=== PATIENT | male | born 1980 | race African-American/Black ===

== ENCOUNTER 2019-07-27 16:23 | Emergency (ER) | payer SELFPAY ==
[2019-07-27] MEDS ORDERED: HYDROmorphone 1 MG/ML Syringe IVPUSH ONE (16:42)
[2019-07-27] MEDS ORDERED: diphenhydrAMINE 50 MG/ML SDV IVPUSH ONE (16:42)
[2019-07-27] MEDS ORDERED: Labetalol 100 MG/20 ML MDV IVPUSH ONE ×3 (16:43→18:35)
[2019-07-27] MEDS ORDERED: Metoclopramide 10 MG/2 ML SDV IVPUSH ONE (16:43)
[2019-07-27] MEDS ORDERED: Sodium Chloride 0.9% 1,000 ML IV SCH (16:45)
--- NOTE | 2019-07-27 16:51 | EDM.PDOC ---
ED HPI GENERAL MEDICAL PROBLEM - General Chief Complaint: Headache Stated Complaint: HEAD ACH Time Seen by Provider: 07/27/19 16:45 Source of Information: Reports: Patient History Limitations: Reports: No Limitations - History of Present Illness INITIAL COMMENTS - FREE TEXT/NARRATIVE: 38-year-old male of -[place] descent presents to the ED with a severe generalized headache primarily frontal parietal lobes for the last 5 days. States the headache is been constant throbbing pounding and associated with photophobia and nausea without vomiting. He states he rarely gets a headache. Denies any falls or recent closed head injuries. He was found to have a markedly elevated blood pressure upon arrival in the ED greater than 220/125. He does not see a doctor and therefore has no idea if he has a primary hypertension issue. He states his mother has hypertension. Has any chest pain. As far as he knows he is never had any renal problems. Onset: Gradual Onset Date: 07/23/19 Duration: Day(s):, Constant Location: Reports: Head (Severe generalized headache) Quality: Reports: Ache, Throbbing, Other Severity: Severe (Headache 9 out of 10) Improves with: Reports: Rest (It is worse when he is standing up or trying to walk. Better when he is lying down. This suggests a mild traction component to the headache) Worsens with: Reports: Other (Standing) Context: Denies: Activity ( and looking at light.), Exercise, Lifting, Sick Contact, Trauma, Other Associated Symptoms: Reports: Headaches, Loss of Appetite, Malaise. Denies: Confusion, Chest Pain, Cough, cough w sputum, Diaphoresis, Fever/Chills, Nausea/Vomiting, Rash, Seizure, Shortness of Breath, Syncope, Weakness Treatments BAKESHOP CLE[employer]ER: Reports: Other (see below) (None.) Headache Pain Score (Numeric/FACES): 6 - Related Data Allergies Allergy/AdvReac Type Severity Reaction Status Date / Time pork derived (porcine) Allergy Cannot Verified 07/27/19 16:36 Remember Home Meds: Home Meds . [No Known Home Meds] 07/27/19 [History] Past Medical History - Past Health History Medical/Surgical History: Denies Medical/Surgical History Social & Family History - Tobacco Use Smoking Status *Q: Never Smoker Second Hand Smoke Exposure: No - Caffeine Use Caffeine Use: Reports: None - Recreational Drug Use Recreational Drug Use: Yes Recreational Drug Type: Reports: Marijuana/Hashish - Living Situation & Occupation Occupation: Unemployed Social History Comment: Relocated to [place] and has not yet employed. ED ROS GENERAL - Review of Systems Review Of Systems: See Below Constitutional: Reports: Malaise, Fatigue, Decreased Appetite. Denies: Fever, Chills HEENT: Reports: Other (It is sensitive to light.) Respiratory: Reports: No Symptoms Cardiovascular: Reports: No Symptoms, Blood Pressure Problem (Pressure is markedly elevated but he does not see a doctor and does not know if he has hypertension.) Endocrine: Reports: Fatigue GI/Abdominal: Reports: Nausea. Denies: Vomiting : Reports: No Symptoms Musculoskeletal: Denies: Neck Pain Skin: Reports: No Symptoms Neurological: Reports: Headache. Denies: Confusion, Dizziness Psychiatric: Reports: No Symptoms Hematologic/Lymphatic: Reports: No Symptoms Immunologic: Reports: No Symptoms ED EXAM, HEAD INJURY - Physical Exam Exam: See Below Exam Limited By: Language Barrier (Is a very mild language barrier. He seems to speak very good Tanzanian and have a good understanding of Tanzanian language.) General Appearance: Alert, WD/WN, Moderate Distress, Other (Temperature is 36.4 which is likely inaccurate. Pulse is 60 and sinus respiratory 16 with sats of 99%. BP is 221/123. Checked on multiple occasions and similar recordings have been obtained x3.) Head: Atraumatic, Normocephalic. No: Scalp Lacerations, Scalp Swelling Nexus Criteria: No: Posterior, Midline Cervical Tenderness, Evidence of Intoxication, Altered Level of Consciousness, Focal Neurological Deficit, Painful Distraction Injuries Eyes: Bilateral Eye: A-V [place] (mild to moderate. No flame hemorrhages identified), Normal Inspection, PERRL Throat/Mouth: Normal Inspection, Normal Lips, Normal Oropharynx, Other (Is mildly dry and coated.) Neck: Non-Tender, Full Range of Motion, Normal Alignment, Normal Inspection. No: Stiff Neck Respiratory: No Respiratory Distress, Lungs Clear, Normal Breath Sounds, No Accessory Muscle Use, Chest Non-Tender Cardiovascular: Normal Peripheral Pulses, Regular Rate, Rhythm, No Edema, No Gallop, No Murmur, No Rub GI/Abdominal Exam: Normal Bowel Sounds, Soft, Non-Tender, No Organomegaly, No Abnormal Bruit, No Mass, Pelvis Stable, Other (No previous abdominal surgery.) Back Exam: Normal Inspection, Full Range of Motion. No: CVA Tenderness (L), CVA Tenderness (R) Extremities: Normal Inspection, Normal Range of Motion, Non-Tender, No Pedal Edema Neurologic: No Motor/Sensory Deficits, Alert, Normal Mood/Affect, Oriented x 3, Other (No ataxia on [id number] assessment. No pronator drift.) DTR: 1+: Achilles (R), Achilles (L), 2+: Bicep (R), Bicep (L), Patella (R), Patella (L) Skin: Normal Color, Warm/Dry - Franck Coma Score Best Eye Response (Franck): (4) Open Spontaneously Best Verbal Response ([place]): (5) Oriented Best Motor Response ([place]): (6) Obeys Commands Franck Total: 15 EKG INTERPRETATION EKG Date: 07/27/19 Time: 17:29 Rhythm: Other Rate (Beats/Min): 51 [place]: LAD-Left [place] Deviation (Minimal left axis deviation of -5 degrees) P-Wave: Enlarged (Sitter left atrial hypertrophy) QRS: Other (Ventricular hypertrophy with strain pattern or repull polarization abnormality.) ST-T: Other (Mild ST segment elevation V1 to V3 with T wave inversion V4 to V6 1 and aVL) QT: Normal EKG Interpretation Comments: Abnormal ECG Course - Vital Signs Last Recorded V/S: Last Vital Signs Temp 36.4 C 07/27/19 16:31 Pulse 62 07/27/19 16:43 Resp 16 07/27/19 16:43 BP 182/127 H 07/27/19 18:49 Pulse Ox 98 07/27/19 16:43 - Orders/Labs/Meds Orders: Active Orders 24 hr Category Date Time Status EKG Documentation Completion [RC] STAT Care 07/27/19 16:44 Active Chest 1V Frontal [CR] Stat Exams 07/27/19 16:44 Taken URINALYSIS W/MICROSCOPIC [UA W/MICROSCOPIC] [URIN] Stat Lab 07/27/19 17:28 Ordered Labetalol [Normodyne] 100 mg Med 07/27/19 17:45 Active Sodium Chloride 0.9% [Normal Saline] 80 ml IV TITRATE Potassium Chloride [KCl 10 MEQ in Water 100 ML] 10 meq Med 07/27/19 18:15 Active Premix Bag 1 bag IV Q1H Sodium Chloride 0.9% [Normal Saline] 1,000 ml Med 07/27/19 16:45 Active IV ASDIRECTED niCARdipine 25 MG in Normal Saline @ 5 MG/HR(250ml) Med 07/27/19 19:00 Ordered niCARdipine HCl [Nicardipine HCl] 25 mg Sodium Chloride 0.9% [Normal Saline] 250 ml IV TITRATE Medication Orders Sodium Chloride (Normal Saline) 1,000 mls @ 100 mls/hr IV ASDIRECTED JOSE ANTONIO Last Admin: 07/27/19 17:03 Dose: 100 mls/hr Documented by: JH Labetalol HCl 100 mg/ Sodium (Chloride) 100 mls @ 60 mls/hr IV TITRATE JOSE ANTONIO; Protocol Last Titration: 07/27/19 18:35 Dose: 1 mg/min, 60 mls/hr Documented by: Admin: 07/27/19 17:55 Dose: 0.5 mg/min, 30 mls/hr Documented by: JH Potassium Chloride 10 meq/ (Premix) 100 mls @ 100 mls/hr IV Q1H JOSE ANTONIO Stop: 07/28/19 00:14 Last Admin: 07/27/19 18:25 Dose: 100 mls/hr Documented by: JH Labs: Laboratory Tests 07/27/19 07/27/19 Range/Units 16:35 16:35 WBC 12.37 H (4.23-9.07) K/mm3 RBC 6.01 (4.63-6.08) M/mm3 Hgb 15.7 (13.7-17.5) gm/dl Hct 47.1 (40.1-51.0) % MCV 78.4 L (79.0-92.2) fl MCH 26.1 (25.7-32.2) pg MCHC 33.3 (32.2-35.5) g/dl RDW Std Deviation 43.9 (35.1-43.9) fL Plt Count 343 H (163-337) K/mm3 MPV 9.3 L (9.4-12.3) fl Neut % (Auto) 78.1 H (34.0-67.9) % Lymph % (Auto) 14.5 L (21.8-53.1) % [place] % (Auto) 6.9 (5.3-12.2) % Eos % (Auto) 0.1 L (0.8-7.0) Baso % (Auto) 0.2 (0.1-1.2) % Neut # (Auto) 9.66 H (1.78-5.38) K/mm3 Lymph # (Auto) 1.79 (1.32-3.57) K/mm3 [place] # (Auto) 0.85 H (0.30-0.82) K/mm3 Eos # (Auto) 0.01 L (0.04-0.54) K/mm3 Baso # (Auto) 0.03 (0.01-0.08) K/mm3 Manual Slide Review Not Reportable Sodium 141 (136-145) mEq/L Potassium 2.6 L (3.5-5.1) mEq/L Chloride 101 (98-107) mEq/L Carbon Dioxide 29 (21-32) mEq/L Anion Gap 13.6 (5-15) BUN 14 (7-18) mg/dL Creatinine 1.3 (0.7-1.3) mg/dL Est Cr Clr Drug Dosing 77.80 mL/min Estimated GFR (MDRD) > 60 (>60) mL/min BUN/Creatinine Ratio 10.8 L (14-18) Glucose 162 H (74-106) mg/dL Calcium 9.1 (8.5-10.1) mg/dL Magnesium 2.1 (1.8-2.4) mg/dl Total Bilirubin 1.2 H (0.2-1.0) mg/dL AST 21 (15-37) U/L ALT 43 (16-63) U/L Alkaline Phosphatase 132 H (46-116) U/L Total Protein 8.7 H (6.4-8.2) g/dl Albumin 4.2 (3.4-5.0) g/dl Globulin 4.5 gm/dL Albumin/Globulin Ratio 0.9 L (1-2) TSH 3rd Generation 0.421 (0.358-3.74) uIU/mL Meds: Medications Generic Name Dose Route Start Last Admin Trade Name Freq PRN Reason Stop Dose Admin Sodium Chloride 1,000 mls @ 100 mls/hr 07/27/19 16:45 07/27/19 17:03 Normal Saline IV 100 mls/hr ASDIRECTED JOSE ANTONIO Administration Labetalol HCl 100 mg/ Sodium 100 mls @ 60 mls/hr 07/27/19 17:45 07/27/19 18:3 5 Chloride IV 1 mg/min TITRATE JOSE ANTONIO 60 mls/hr Titration Protocol 1 MG/MIN Potassium Chloride 10 meq/ 100 mls @ 100 mls/hr 07/27/19 18:15 07/27/19 18:25 Premix IV 07/28/19 00:14 100 mls/hr Q1H JOSE ANTONIO Administration Discontinued Medications Generic Name Dose Route Start Last Admin Trade Name Tristenq PRN Reason Stop Dose Admin Diphenhydramine HCl 25 mg 07/27/19 16:42 07/27/19 16:57 Benadryl IVPUSH 07/27/19 16:43 25 mg ONETIME ONE Administration Enalaprilat 1.25 mg 07/27/19 18:40 07/27/19 18:49 Vasotec Iv IVPUSH 07/27/19 18:41 1.25 mg ONETIME ONE Administration Hydromorphone HCl 1 mg 07/27/19 16:42 07/27/19 16:51 Dilaudid IVPUSH 07/27/19 16:43 1 mg ONETIME ONE Administration Labetalol HCl 20 mg 07/27/19 16:43 07/27/19 17:05 Normodyne IVPUSH 07/27/19 16:44 20 mg ONETIME ONE Administration Protocol Labetalol HCl 20 mg 07/27/19 17:32 07/27/19 17:35 Normodyne IVPUSH 07/27/19 17:33 4 ml ONETIME ONE Administration Protocol Labetalol HCl 40 mg 07/27/19 18:35 07/27/19 18:38 Normodyne IVPUSH 07/27/19 18:36 40 mg ONETIME ONE Administration Protocol Metoclopramide HCl 10 mg 07/27/19 16:43 07/27/19 16:55 Reglan IVPUSH 07/27/19 16:44 10 mg ONETIME ONE Administration - Radiology Interpretation Free Text/Narrative:: 38-year-old male presents to the ED with a diffuse headache primarily felt in the frontal and parietal part of his head. Described as a vice-like headache pounding and throbbing continuously for the last 5 days. He is lost his appetite mildly nauseated but has not vomited. He has no ataxia or loss of visual acuity change or loss of balance. He was identified to be severely hypertensive on initial evaluation at 185/123. It was rechecked on multiple occasions and similar findings were obtained. The lowest it came down to is 204/126. Suspect of course that he has a primary hypertension issue and likely the major contributing factor to his headache. Plan he will have a CT head performed. He will have ECG and routine labs and urinalysis performed. He will be given labetalol 20 mg IV for hypertension. He will be given 1 mg IV for headache relief with Reglan 10 mg IV and Benadryl 25 mg IV. - Re-Assessments/Exams Free Text/Narrative Re-Assessment/Exam: 07/27/19 17:31 Blood pressure is currently 172/121. I am therefore going to give him another dose of labetalol 20 mg IV and start him on a drip at 1 mg/h. CT reveals an intracranial hemorrhage with blood in the right basal ganglia which extends into both of the lateral ventricles, third ventricle as well as the fourth ventricle. Basal ganglia hemorrhage measures 2.1 x 0.9 cm. No other areas of hemorrhage are seen. Temporal horns of the lateral ventricle are slightly dilated suggesting a mild amount of obstructing hydrocephalus presumabl y from the blood within the third and fourth ventricles. This appears to be a hypertensive bleed. There is no midline shift. 07/27/19 17:35 White count is mildly elevated at 12.37. The auto differential shows 78.1% neutrophils. Hemoglobin is 15.7 with hematocrit of 4047.1 adjusting mild hemoconcentration. Platelet count 343,000. Sodium 141 potassium very low at 2.6. Chloride 101 bicarb 29. Anion gap is 13.6 with a BUN of 14. Creatinine is 1.3 with GFR greater than 60. Glucose 162. Calcium 9.1. Magnesium 2.1. Bilirubin is mildly elevated at 1.2. AST is 21 ALT is 43 alk phos stays minimally elevated at 132. Total protein is 8.7 with an albumin fraction of 4.2 again suggesting mild hemoconcentration. TSH is 0.421 normal. Order 10 mEq of potassium intravenously q. hourly x6 doses since his potassium is so low because he is not been able to eat. Quire transport to neurosurgical capabilities as he may well need a shunt. Already enters the third and fourth ventricles and lateral ventricles do appear to be mildly dilated at this time. 07/27/19 18:39 OP on recheck is 203/131. Heart rate is 62 therefore receive labetalol dosage 40 mg IV and the drip will be increased from 0.5 to 1mg/min. Also going to give him Vasotec 1.25 mg IV for blood pressure control as well. His renal function is normal. 07/27/19 19:08 remains 174/121. His heart rate is down to 56 and therefore he will not tolerate any further doses of labetalol. Decision made to switch medications. Labetalol drip will be discontinued and he will be started on nicardipine drip starting at 5 mg/h. This will be titrated up by 2.5 mg every 15 minutes to achieve a blood pressure of 1 60-1 70 systolic and 90-100 diastolic. Maximum dose of nicardipine is 15mg/hour. Patient will be transferred to [facility] to the emergency department where Dr. Guadarrama has accepted care. The decision will be made at that time depending on his blood pressure whether he will need intensive care admission. The time of discharge patient was not showing any signs of a neurological deficit. Departure - Departure Time of Disposition: 19:10 Disposition: Home, Self-Care 01 Condition: Fair Clinical Impression: Malignant hypertension, Intracranial hemorrhage, Hypokalemia due to inadequate potassium intake, Severe headache - Discharge Information *PRESCRIPTION DRUG MONITORING PROGRAM REVIEWED*: Not Applicable *COPY OF PRESCRIPTION DRUG MONITORING REPORT IN PATIENT SALO: Not Applicable Instructions: Hypokalemia Referrals: PCP,None [Primary Care Provider] - Forms: ED Department Discharge Additional Instructions: Patient transferred to [facility] to the emergency department. Dr. Guadarrama ER physician has accepted care. Patient sent to that facility due to intracranial hemorrhage secondary to hypertensive bleed and malignant hypertension. Sepsis Event Note (ED) - Evaluation Sepsis Screening Result: No Definite Risk - Focused Exam Vital Signs: Vital Signs Temp Pulse Resp BP BP Pulse Ox 07/27/19 18:49 182/127 H 07/27/19 16:43 62 16 218/140 H 98 07/27/19 16:31 36.4 C 60 16 221/123 H 99 - My Orders Last 24 Hours: My Active Orders 07/27/19 16:44 EKG Documentation Completion [RC] STAT Chest 1V Frontal [CR] Stat 07/27/19 16:45 Sodium Chloride 0.9% [Normal Saline] 1,000 ml IV ASDIRECTED 07/27/19 17:28 URINALYSIS W/MICROSCOPIC [UA W/MICROSCOPIC] [URIN] Stat 07/27/19 17:45 Labetalol [Normodyne] 100 mg Sodium Chloride 0.9% [Normal Saline] 80 ml IV TITRATE 07/27/19 18:15 Potassium Chloride [KCl 10 MEQ in Water 100 ML] 10 meq Premix Bag 1 bag IV Q1H 07/27/19 19:00 niCARdipine 25 MG in Normal Saline @ 5 MG/HR(250ml) niCARdipine HCl [Nicardipine HCl] 25 mg Sodium Chloride 0.9% [Normal Saline] 250 ml IV TITRATE - Assessment/Plan Last 24 Hours: My Active Orders 07/27/19 16:44 EKG Documentation Completion [RC] STAT Chest 1V Frontal [CR] Stat 07/27/19 16:45 Sodium Chloride 0.9% [Normal Saline] 1,000 ml IV ASDIRECTED 07/27/19 17:28 URINALYSIS W/MICROSCOPIC [UA W/MICROSCOPIC] [URIN] Stat 07/27/19 17:45 Labetalol [Normodyne] 100 mg Sodium Chloride 0.9% [Normal Saline] 80 ml IV TITRATE 07/27/19 18:15 Potassium Chloride [KCl 10 MEQ in Water 100 ML] 10 meq Premix Bag 1 bag IV Q1H 07/27/19 19:00 niCARdipine 25 MG in Normal Saline @ 5 MG/HR(250ml) niCARdipine HCl [Nicardipine HCl] 25 mg Sodium Chloride 0.9% [Normal Saline] 250 ml IV TITRATE
[2019-07-27] MEDS ORDERED: Labetalol 100 MG in Sodium Chloride 0.9% 80 ML IV SCH (17:45)
--- NOTE | 2019-07-27 17:50 | CT ---
Head CT Technique: Multiple axial sections through the brain were obtained. Intravenous contrast was not utilized. Findings: Right-sided basal ganglia hemorrhage is noted which shows rupturing of blood into the ventricular system with blood being seen within both lateral ventricles, third ventricle as well as fourth ventricle. Basal ganglia hemorrhage measures about 2.1 x 0.9 cm. No midline shift is seen at this time. No other areas of hemorrhage are seen. Temporal horns of the lateral ventricle are slightly dilated suggesting a mild amount of obstructing hydrocephalus presumably from the blood within the third and fourth ventricles. Bone window settings were reviewed. No acute calvarial abnormality is seen. Visualized portions of the mastoid and paranasal sinuses show nothing acute. Impression: 1. Basal ganglia hemorrhage as described above. This is most likely a hypertensive bleed given its location. 2. The basal ganglia blood ruptures into the lateral ventricles. Blood is seen within both lateral ventricles, third ventricle and fourth ventricle. 3. Slightly dilated temporal horns of the lateral ventricle raising the possibility of mild obstructing hydrocephalus from the blood within the third and fourth ventricles. 4. No additional abnormality is appreciated. Diagnostic code #5 Study was dictated in MDT
[2019-07-27] MEDS: Potassium Chloride 10 MEQ in Premix Bag 1 BAG IV SCH ×2 (18:25→19:36)
[2019-07-27] MEDS ORDERED: Enalaprilat 1.25 MG/ML SDV IVPUSH ONE (18:40)
[2019-07-27] MEDS ORDERED: niCARdipine HCl 25 MG in Sodium Chloride 0.9% 250 ML IV SCH (19:00)
--- NOTE | 2019-07-27 20:06 | CR ---
Chest: Frontal view of the chest was obtained. Comparison: No previous chest x-ray. Heart is slightly enlarged. Upper mediastinum is normal. Lungs are clear with no acute parenchymal change. Bony structures are grossly intact. Impression: 1. Nothing acute is seen on frontal chest x-ray. Diagnostic code #2 Study was dictated in MDT
== END 2019-07-27 19:25 | disposition home or self-care (01) ==
LOC: JD.ED 16:23
DX: I62.9 Nontraumatic intracranial hemorrhage, unspecified (principal); I10 Essential (primary) hypertension; E87.6 Hypokalemia; Z91.018 Allergy to other foods
CPT/HCPCS: 36415; 70450; 71045; 80053; 83735; 84443; 85025; 93005; 96365; 96367; 96368; 96375; 96376; 99285; J1170; J1200; J2765; J3480; J3490; J7030; J7050